=== PATIENT | male | born 1980 | race Caucasian/White ===

== ENCOUNTER 2016-04-28 04:10 | Inpatient (IN) | payer MEDICAID ==
[2016-04-28] VITALS (7 sets, daily range): BP systolic 127–147; BP diastolic 82–103; PULSE 74–110; RESP 14–20; O2SAT 96–99
[~2016-04-28] VITALS: Ht 182.9 cm; Wt 64.6 kg
--- NOTE | 2016-04-28 04:22 | ED.REPORT ---
HPI-General Illness Date of Service Apr 28, 2016 ED Provider: Dr. Shad Preston M.D. A 36 year old male presents to the ED with intermittent alcohol withdrawal symptoms onset six months ago. Today he reports generalized pain, shakiness, weight loss, nausea, vomiting, reduced appetite, and melena. The patient has been drinking approximately 750 mL of alcohol per day for the last six months. His last drink was just prior to arrival. He is interested in alcohol detox today. He has tried to detox in the past but became too ill. Nursing Notes Stated Complaint: FLU SYMPTOMS/ HEART ISSUES Chief Complaint: General Complaint Nursing Notes Reviewed: Yes Allergies: Coded Allergies: No Known Allergies (Unverified , 04/28/16) General Time Seen by MD: 04:21 Chief Complaint Other (Alcohol Withdrawal) Hx Obtained From: Patient Arrived By: Walk-in Sudden in Onset?: Yes Onset Occurred: 5 - 8 hours ago Symptom Duration: Since onset Location: : Abdomen: Back: Chest: Head: Neck Quality: Aching, Painful Severity: Current: Mild Severity: Maximum: Mild Associated with: Reports: Nausea, Vomiting, Denies: Fever Recent Healthcare: No recent doctor visit Similar Sx Previous: Yes Past Medical History Past Medical History Bilateral forearm injuries Ulcers Past Surgical History Forearm surgery Smoking History Current Every Day Smoker Social History Alcohol Use: >5 per day Other Social History: Good social support Ambulatory Status Independent Review of Systems + alcohol withdrawal, reduced appetite Full Review of Systems Constitutional: Reports: Recent wt loss GI: Reports: Melena, Nausea, Vomiting Musculoskeletal: Reports: Myalgia (General) Neurologic: Reports: Shaking Complete sys rev & neg: except as marked. Physical Exam Vital Signs Vital Signs Date Time Temp Pulse Resp B/P Pulse Ox O2 Delivery O2 Flow Rate FiO2 04/28/16 04:14 37.2 109 20 147/103 97 Room Air Initial VS: Reviewed Head / Eyes: Atraumatic, Normocephalic ENT: Conjunctiva normal, No scleral icterus Neck: Supple, Full range of motion Respiratory: Breath sounds normal, Clear to auscultation, No respiratory distress Skin: Warm, Dry General/Constitutional: Awake, Alert Behavior: Positive: Tearful Cardiovascular: Regular rhythm, Heart sounds NL Heart Rate / Rhythm: Positive: Tachycardia Neurologic: Oriented X3, Speech NL, No motor deficits, No sensory deficits Movement Abnormality: Positive: Tremor Psychiatric: Affect NL, Mood NL, Not homicidal, No hallucinations, Cognitive function NL Interpretation & Diagnostics Lab Results Interpretation Result Diagram: 04/28/16 0510 04/28/16 0510 Test 04/28/16 05:10 04/28/16 06:10 White Blood Count 5.1th/mm3 (3.8-10.1) Red Blood Count 4.85mil/mm3 (4.40-5.80) Hemoglobin 15.7g/dL (13.8-17.2) Hematocrit 46.1% (41.0-50.0) Mean Corpuscular Volume 95.1fL (81-100) Mean Corpuscular Hemoglobin 32.4pg (27.0-35.0) Mean Corpuscular Hemoglobin Concent 34.1% (32.0-37.0) Red Cell Distribution Width 12.7% (12.3-15.4) Platelet Count 167bil/L (150-400) Neutrophils (%) (Auto) 35.0% (40-74) Lymphocytes (%) (Auto) 48.5% (14-46) Monocytes (%) (Auto) 15.3% (4-12) Eosinophils (%) (Auto) 0.4% (0-5) Basophils (%) (Auto) 0.6% (0-3) Prothrombin Time 10.0sec (8.1-12.5) Prothromb Time International Ratio 0.94ratio Sodium Level 144mEq/L (134-144) Potassium Level 3.5mEq/L (3.5-5.2) Chloride Level 100mEq/L (97-108) Carbon Dioxide Level 25mmol/L (18-29) Blood Urea Nitrogen 3mg/dL (6-20) Creatinine 0.65mg/dL (0.76-1.27) Estimat Glomerular Filtration Rate 149mL/min (>59) Glucose Level 113mg/dL (60-99) Calcium Level 9.3mg/dL (8.5-10.1) Magnesium Level 1.9mg/dL (1.6-2.6) Total Bilirubin 0.9mg/dL (0.0-1.2) Aspartate Amino Transf (AST/SGOT) 122U/L (0-50) Alanine Aminotransferase (ALT/SGPT) 81U/L (0-44) Alkaline Phosphatase 111U/L (25-150) Troponin T 0.010ug/L (0.0-0.011) Total Protein 7.6g/dL (6.4-8.4) Albumin 4.1g/dL (3.4-5.0) Lipase 148U/L (13-60) Alcohol, Quantitative 325mg/dL (0-10) Urine Color Dark yellow (YELLOW) Urine Appearance Clear (CLEAR,HAZY) Urine pH 7.0 (5.0-8.0) Urine Specific Halsey 1.015 (1.003-1.035) Urine Protein Negativemg/dL (NEG,TRACE) Urine Glucose (UA) Negativemg/dL (NEGATIVE) Urine Ketones Negativemg/dL (NEGATIVE) Urine Occult Blood Negative (NEGATIVE) Urine Nitrite Negative (NEGATIVE) Urine Bilirubin Negative (NEGATIVE) Urine Urobilinogen Normalmg/dL (NORMAL) Urine Leukocyte Esterase Negative (NEGATIVE) Urine RBC 0-2/hpf (0-2) Urine WBC 0-5/hpf (0-5) Urine Epithelial Cells Occasional/hpf (NONE-MOD) Urine Crystals None seen (NONE SEEN) Urine Bacteria Few/hpf (NONE-FEW) Urine Hyaline Casts None/lpf (NONE) Urine Granular Casts None seen (NONE SEEN) Urine Waxy Casts None seen (NONE SEEN) Urine Red Blood Cell Casts None seen (NONE SEEN) Urine White Blood Cell Casts None seen (NONE SEEN) Urine Mucus None seen (None Seen) Urine Trichomonas None seen (NONE SEEN) Urine Yeast None (NONE SEEN) Urinalysis Comment None Urine Culture Reflexed Not indicated X-Ray Chest Interpretation Chest Xray Interpretation: 2.4 cm right lung nodule COPD appearance to lungs View: Portable, 1 view Interpretation / Wet Read by: Wet read ED physician Re-Eval/Medical Decision Med Decision/Clinical Course 36-year-old with a substantial alcohol history over the past year, culminating in a habit of a fifth of distilled liquor a day. He is tremulous already with an alcohol level in the 200s. He desires detox. He is recently high risk for seizures and other complications and use a better candidate for initial inpatient withdrawal. He is begun now on a CIWA protocol. Thiamine supplemented. Time of Eval: 04:36 Patient Status: Condition unchanged Re-Evaluation/Progress Note: Discussed with patient diagnosis and plan for admit. Patient agrees with plan for care and all questions were addressed. Time of Eval: 05:41 Patient Status: Condition improved Re-Evaluation/Progress Note: Patient rechecked. Consultation : Referral / Consult Name: Susana Lujan MD Consulted With: Hospitalist Call Returned at: 06:21 Private Secretary: Agrees with eval, Agrees with plan, Accepts admit Counseled Regarding: Diagnosis, Need for admission Discharge & Departure Shift Change Sign-Out Response to Therapy: Improved Primary Impression: Alcohol withdrawal Complication of substance-induced condition: uncomplicated Qualified Code: F10.230 - Alcohol dependence with withdrawal, uncomplicated Disposition: ADMITTED TO HOSPITAL Discharge Condition All VS Reviewed: Yes Condition: Stable Scribe Attestation Portions of this note were transcribed by Luz Tinsley. I, Dr. Preston, personally performed the history, physical exam, and medical decision-making; I reviewed and confirmed the accuracy of the information in the transcribed note. Signed by: Manuel Rosa, 04/28/2016, 06:27 Shad Preston MD Apr 28, 2016 04:21 LUZ TINSLEY Apr 28, 2016 04:39
[2016-04-28] MEDS ORDERED: Multivitamin w/Vit K Inj 10 ML, Thiamine Inj 100 MG, Folic Acid Inj 1 MG, Magnesium Sul... IV ONE ×5 (04:37)
[2016-04-28] MEDS ORDERED: Pantoprazole 4 mg/mL 10 mL Inj IVPUSH ONE (04:40)
[2016-04-28 05:23] LABS: BASOPHILS % (AUTO) 0.6 % (0-3); EOSINOPHILS % (AUTO) 0.4 % (0-5); MONOCYTES % (AUTO) 15.3 % (4-12); Mean Corpuscular Hemoglobin 32.4 pg (27.0-35.0); Mean Corpuscular Volume 95.1 fL (81-100); Platelet Count 167 bil/L (150-400)
[2016-04-28 05:36] LABS: INR 0.94 ratio
[2016-04-28 05:41] LABS: TROPONIN T 0.01 ug/L (0.0-0.011)
[2016-04-28 05:52] LABS: Magnesium 1.9 mg/dL (1.6-2.6)
[2016-04-28] MEDS ORDERED: Ondansetron 2 mg/mL 2 mL Inj IVPUSH PRN (06:45)
[2016-04-28 07:06] LABS: APPEARANCE,URINE CLEAR (CLEAR,HAZY); COLOR,URINE DARK YELLOW (YELLOW); OCCULT BLOOD,URINE NEGATIVE (NEGATIVE); UROBILINOGEN,URINE NORMAL (NORMAL)
[2016-04-28] MEDS: Lactated Ringer's 1,000 ML IV SCH ×2 (08:02→17:48)
--- NOTE | 2016-04-28 08:49 | DRSVH ---
PROCEDURE: X-RAY CHEST ONE VIEW, PORTABLE ([id number]) INDICATIONS: withdrawal TECHNIQUE: One view of the chest was acquired. COMPARISON: None. FINDINGS: Surgical changes and devices: None. Lungs and pleura: No pleural effusions or pneumothorax. 24 mm diameter right basilar lung nodule is present. Mediastinum: Mediastinal contours appear normal. Heart size is normal. Bones and chest wall: No suspicious bony lesions. Overlying soft tissues appear unremarkable. IMPRESSION: Right basilar lung nodule; further assessment with chest CT with intravenous contrast is recommended. Concordant with preliminary interpretation. Dictated by: Sommer Talbot M.D. on 04/28/2016 at 8:47 Approved by: Sommer Talbot M.D. on 04/28/2016 at 8:47
[2016-04-28] MEDS ORDERED: Polyethylene Glycol (PEG) 17 Gm Powder PO PRN (10:35)
[2016-04-28] MEDS ORDERED: Thiamine Inj 100 MG, Folic Acid Inj 1 MG, Magnesium Sulfate 50% Inj 2 GM, Multivitamins... IV ONE ×5 (10:35)
[2016-04-28] MEDS ORDERED: Alum-Mag Hydrox-Simeth 30 mL Suspension PO PRN (10:35)
[2016-04-28] MEDS: Heparin 5,000 Unit/mL Inj SUBQ SCH ×2 (16:13→23:50)
[2016-04-28] MEDS: Ondansetron 2 mg/mL 2 mL Inj IVPUSH PRN ×2 (16:18→20:05)
[2016-04-28] MEDS ORDERED: Influenza (Adult) Vaccine 0.5 mL Syringe IM ONE (16:30)
--- NOTE | 2016-04-28 17:20 | PCM.HPMED ---
Subjective Date of Service Apr 28, 2016 Primary Provider: Admitting Physician: Susana Lujan MD Primary Care Physician: Nopcp Attending Physician: Susana Lujan MD Admit Status: From the Emergency Department, Full Admit, Admit to [facility] Team, [facility] Telemetry Chief Complaint: Moderately severe alcohol withdrawal History of Present Illness: This is a 36-year-old gentleman with a history of alcohol abuse versus dependence. He presents today with generalized cold symptoms including rhinorrhea and sore throat. He also notes that he feels nauseated and tremulous having decided to quit drinking. He has been drinking last 6 months very heavily at about a fifth of liquor a day. 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 He denies a history of severe withdrawal tremens, or seizures related to alcohol cessation. He is scoring anywhere from 0-20 on the CIWA protocol while being boarded in the emergency department. He denies any chest pain or dyspnea. He has had recent fatigue and diarrhea. No nausea or vomiting. No rectal bleeding or hemoptysis. Hematemesis. Review of Systems: He does have a mild headache denies visual changes or hearing loss. Some rhinorrhea and cough. Minimal sore throat. No dyspnea. He denies any abdominal pain. He has multiple bruises and ulcers on the skin. All else reviewed and otherwise unremarkable as noted in the history of present illness. Allergies Coded Allergies: No Known Allergies (Unverified , 04/28/16) Home Medications None PMH 1. 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 No acute distress. Fluent speech. The patient is again oriented 3. Normal skull. Normal nose and ears. Anicteric sclerae, symmetric pupils Oropharynx dry mucosa otherwise unremarkable. No droop Neck supple. Normal thyroid, no adenopathy Lungs are clear, normal effort and rate. Heart is regular without murmur gallop or rub Abdomen is soft nondistended no organomegaly. Extremities are free of edema. Good radial and pedal pulses. Skin is normal for multiple excoriations. Some bruises. Joints Are Deformed Cranial Nerves Are Intact Lab and Diagnostics Result Diagram: 04/28/1650904/28/16509 Assessment & Plan 1. Acute alcohol withdrawal syndrome. POA. We will place patient on CIWA protocol. 2. Alcohol abuse versus dependence. POA. We will use fluids with thiamine and multivitamins. 3. Volume depletion. POA. IV fluids as above. 4. Probable alcohol-induced hepatitis. POA. Follow clinically. 5. Upper respiratory symptoms. POA. Respiratory PCR. Patient was admitted inpatient status, expect over 2 night stay Full resuscitation Pain Evaluation: Adequate Pain Control Resuscitation Status: CPR: Attempt Resuscitation Time spent 40 minutes Gallo Neff MD Apr 28, 2016 17:20
--- NOTE | 2016-04-28 18:34 | NUR ---
CIWA management Pt. treated for withdrawal according to [facility] protocol. CIWA score ranging from 0-21. Major symptoms are nausea, anxiety, and tremors. PRN lorazepam and ondansetron administered to help with symptoms as well. See [facility] intervention and MAR for assessment and med administration. Pt. pleasant and cooperative. States he has been having nausea and vomiting every day for weeks now, with occasional diarrhea. No vomiting this shift. Will continue to monitor.
[2016-04-29] VITALS (9 sets, daily range): BP systolic 129–156; BP diastolic 83–104; PULSE 64–80; RESP 16–18; O2SAT 98–100
[2016-04-29] MEDS: Lactated Ringer's 1,000 ML IV SCH ×3 (03:37→22:52)
--- NOTE | 2016-04-29 03:43 | NUR ---
Anxiety/Pain Patient has presented with anxiety, tremors, headache, nausea, and abdominal pain. Treated with lorazepam and morphine to maintain a low CIWA score. Patient has been sleeping most of the night without much issue. Will continue to monitor.
[2016-04-29 04:13] LABS: BASOPHILS % (AUTO) 0.7 % (0-3); EOSINOPHILS % (AUTO) 1.2 % (0-5); MONOCYTES % (AUTO) 11.9 % (4-12); Mean Corpuscular Hemoglobin 32.4 pg (27.0-35.0); Mean Corpuscular Volume 98.2 fL (81-100); NEUTROPHILS % (AUTO) 48.1 % (40-74); Platelet Count 100 bil/L (150-400)
[2016-04-29 04:44] LABS: Magnesium 1.9 mg/dL (1.6-2.6)
[2016-04-29] MEDS: Multivit-Miner-Folic Acid-Iron Tablet PO SCH (09:17)
[2016-04-29] MEDS: Heparin 5,000 Unit/mL Inj SUBQ SCH ×2 (09:17→16:30)
[2016-04-29] MEDS: Thiamine Inj 100 MG in 0.9% Sodium Chloride 100 ML IV SCH (09:21)
--- NOTE | 2016-04-29 11:57 | PCM.PNMED ---
Subjective Date of Service Apr 29, 2016 Subjective Less anxious. No chest pain or dyspnea. No hallucinations. No diarrhea today. Exam Vital Signs Vital Sign - Last Date Time Temp Pulse Resp B/P Pulse Ox O2 Delivery O2 Flow Rate FiO2 04/29/16 10:39 36.8 74 18 140/86 98 Room Air Intake and Output 04/28/16 04/28/16 04/29/16 Cumulative From/Thru 15:00 23:00 07:00 04/28/16 04:14 - 04/28/16 19:27 Intake Total 1499 ml 2359 ml Output Total 625 ml 625 ml Balance 874 ml 1734 ml Intake Oral 400 ml 760 ml IV Total 1099 ml 1599 ml Output Urine Total 625 ml 625 ml Exam NAD. fluent speech Anicteric sclera Lungs clear CV RRR abdomen soft No edema IVs and Medications Medications Reviewed: Medications were reviewed in detail Lab and Diagnostics Result Diagram: 04/29/16 0400 04/29/16 0400 Assessment & Plan 1. Acute alcohol withdrawal syndrome. POA. We will place patient on CIWA protocol.He is slightly improved. CDL evaluation today. 2. Alcohol abuse versus dependence. POA. We will use fluids with thiamine and multivitamins. 3. Volume depletion. POA. IV fluids as above.Better. 4. Probable alcohol-induced hepatitis. POA. Follow clinically.Positive RUQ pain, follow 5. Upper respiratory symptoms. POA. Respiratory PCR. Patient was admitted inpatient status, expect over 2 night stay Full resuscitation Pain Evaluation: Adequate Pain Control Resuscitation Status: CPR: Attempt Resuscitation Time spent 20 min Gallo Neff MD Apr 29, 2016 11:57
--- NOTE | 2016-04-29 13:36 | NUR ---
Transfer from ED Arrival at 1335, report taken from Ben Pyle RN. Pt very shaky and unsteady on feet with transfer from stretcher to bed; reports pain 8/10 in lower abdomen and is requesting Morphine; EKG ordered prior to transport and RT called at this time to come complete. Will continue close CIWA monitoring. Lauren alarm in place for safety.
[2016-04-30] VITALS (8 sets, daily range): BP systolic 100–133; BP diastolic 68–90; PULSE 70–89; RESP 16–18; O2SAT 97–99
[2016-04-30] MEDS: Heparin 5,000 Unit/mL Inj SUBQ SCH ×4 (01:05→23:31)
--- NOTE | 2016-04-30 04:43 | NUR ---
Pain/Ciwa Pt alert and oriented x3. Pt noted to have flat affect. He can be forgetful and impulsive at times. Bed alarm on for safety. He c/o Abd pain and rates pain 8/10. Pt noted to be sleeping comfortably afterwards. Anxious at times. CIWA 7-10. Valium given with effect noted.
[2016-04-30] MEDS: Lactated Ringer's 1,000 ML IV SCH (08:43)
[2016-04-30] MEDS: Thiamine Inj 100 MG in 0.9% Sodium Chloride 100 ML IV SCH (11:23)
[2016-04-30] MEDS: Multivit-Miner-Folic Acid-Iron Tablet PO SCH (11:24)
--- NOTE | 2016-04-30 19:27 | NUR ---
CIWA/Pain Pt CIWA scale 7-11 over course of shift and able to stay comfortable with ordered medications. No hallucinations on shift. Pt can be forgetful and not use call light when he needs to get up. Reminded to use light because he can be unsteady on feet. Pt continuing to have back and abd pain 12/03, well controlled with medications.
--- NOTE | 2016-04-30 20:01 | PCM.PNMED ---
Subjective Date of Service Apr 30, 2016 Subjective Still scoring about an 8 on the CIWA protocol this morning. Patient is still a little tremulous. Asking about something for his anxiety. He is worried about going back to alcohol at discharge. No chest pain, nausea vomiting, diarrhea or constipation. Exam Vital Signs Vital Sign - Last Date Time Temp Pulse Resp B/P Pulse Ox O2 Delivery O2 Flow Rate FiO2 04/30/16 18:55 36.8 85 16 128/85 99 Room Air Intake and Output 04/29/16 04/29/16 04/30/16 Cumulative From/Thru 15:00 23:00 07:00 04/28/16 04:14 - 04/30/16 06:09 Intake Total 2633 ml 1524 ml 6516 ml Output Total 900 ml 1750 ml 3275 ml Balance -900 ml 2633 ml -226 ml 3241 ml Intake Oral 400 ml 500 ml 1660 ml IV Total 2233 ml 1024 ml 4856 ml Output Urine Total 900 ml 1750 ml 3275 ml # Bowel Movements 0 0 Exam General: Alert, Oriented X3, NAD, tremulous, flat affect Head: Normocephalic, atraumatic Eyes: DWIGHT, EOMI, no scleral Icterus Chest: clear to auscultation B/L, no wheezing rales or rhonchi Heart: Regular rate and rhythm. Normal S1, S2, no murmurs noted Abdomen: soft, non-tender. Bowel sounds are normoactive. No guarding or rebound. Extremities: no cyanosis, clubbing or edema. IVs and Medications Medications Reviewed: Medications were reviewed in detail Lab and Diagnostics Result Diagram: 04/29/160 04/29/16 0400 Assessment & Plan 1. Acute alcohol withdrawal syndrome. POA. -Continue C1 protocol -I had along discussion with him today about alcohol cessation 2. Alcohol abuse versus dependence. POA. -Continue fluids with thiamine and multivitamins. 3. Volume depletion. POA. -Improved 4. Probable alcohol-induced hepatitis. POA. -Follow clinically.Positive RUQ pain, follow 5. Upper respiratory symptoms. POA. -Respiratory PCR Negative, improved CODE STATUS: Full code DVT prophylaxis: Heparin Disposition: Likely home tomorrow with continued improvement. Resuscitation Status: CPR: Attempt Resuscitation Red Malik DO Apr 30, 2016 20:01
--- NOTE | 2016-04-30 23:31 | NUR ---
Heparin Withheld per MD's request This RN noticed that pt's platelet count was 100. Pharmacy was notified, which advised that the 0030 dose of heparin should be withheld. MD was paged also. agreed that since the pt. is ambulatory baseline, that the 0030 dose of heparin should be withheld.
[2016-05-01 02:05] VITALS: BP 118/79; PULSE 71; RESP 16; O2SAT 96
--- NOTE | 2016-05-01 03:29 | NUR ---
CIWA Pt's CIWA score has varied from 9-13 this shift. Pt. was confused about telemetry, but this RN reoriented pt. Will continue to monitor.
[2016-05-01 03:48] VITALS: PULSE 60
[2016-05-01 04:44] VITALS: PULSE 65
[2016-05-01 06:20] VITALS: BP 121/81; PULSE 69; RESP 20; O2SAT 97
[2016-05-01 06:50] LABS: Mean Corpuscular Hemoglobin 32.3 pg (27.0-35.0); Mean Corpuscular Volume 97.8 fL (81-100)
[2016-05-01 08:00] VITALS: PULSE 78
[2016-05-01] MEDS: Multivit-Miner-Folic Acid-Iron Tablet PO SCH (08:00)
[2016-05-01] MEDS: Heparin 5,000 Unit/mL Inj SUBQ SCH (08:30)
[2016-05-01 10:26] VITALS: BP 114/80; PULSE 91; RESP 18; O2SAT 98
[2016-05-01] MEDS ORDERED: SERT50TA9 PO (12:13)
[2016-05-01] MEDS ORDERED: CHLO25CA10 PO (12:13)
--- NOTE | 2016-05-01 12:15 | PCM.DIMED ---
Discharge Instructions Date of Service May 01, 2016 Dates of Hospitalization Apr 28, 2016 at 06:29 Discharge Diagnosis Discharge Diagnosis Alcohol withdrawal Anxiety Diet No restrictions Activity No restrictions Call your provider Fever or Chills, Chest pain, Weakness (unilateral) Patient Instructions Follow-up plan I recommend following up with a treatment program for alcoholism. Follow-up with PCP in: 1 week Red Malik DO May 01, 2016 12:15
--- NOTE | 2016-05-01 15:34 | NUR ---
Discharge Orders for discharge were received. The patient was agreeable to the discharge and received his scripts, information regarding his new medications, diagnosis, treatment, follow up instructions, signs and symptoms to be aware of and information of local substance abuse treatment centers to follow up with. The patient stated understanding of this information and his asymptomatic IV was removed intact. The patients belongs were gathered, from both the room and bedside drawer and storage off unit. The patient then was escorted to the main entrance where he ambulated out the doors at his preference. At the time of discharge the patient was alert and oriented, with no complaints of nausea or pain, CIWA score of 4.
--- NOTE | 2016-05-01 21:33 | PCM.DC.MED ---
Discharge Summary Date of Service May 01, 2016 Dates of Hospitalization Date of Hospital Admission Apr 28, 2016 at 06:29 Date of Discharge: May 01, 2016 Providers: Admitting Physician: Susana Lujan MD Primary Care Physician: Rosibel Attending Physician: Susana Lujan MD Diagnosis at Time of Discharge Diagnosis at Time of Discharge Alcohol withdrawal Anxiety Brief History This is a 36-year-old gentleman with a history of alcohol abuse versus dependence. He presents today with generalized cold symptoms including rhinorrhea and sore throat. He also notes that he feels nauseated and tremulous having decided to quit drinking. He has been drinking last 6 months very heavily at about a fifth of liquor a day. 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 He denies a history of severe withdrawal tremens, or seizures related to alcohol cessation. He is scoring anywhere from 0-20 on the CIWA protocol while being boarded in the emergency department. He denies any chest pain or dyspnea. He has had recent fatigue and diarrhea. No nausea or vomiting. No rectal bleeding or hemoptysis. Hematemesis. Hospital Course The patient was admitted for acute alcohol withdrawal he was placed on CIWA protocol. As he improved and required less benzodiazepines we discussed his anxiety and need for alcohol. He agreed to take Zoloft to help his anxiety. He was treated with IV fluids and the appropriate vitamins. We discussed the natural progression of alcoholism and liver failure which would eventually take his life if he continues drinking. Options for rehabilitation were given to him by case management. At discharge she was given a tapering dose of Librium. He was feeling much better at the time of discharge and comfortable with outpatient follow-up and rehabilitation. He was discharged home in stable condition and instructed follow up with his primary care physician within one week, sooner if his condition worsens in anyway. 1. Acute alcohol withdrawal syndrome. POA. -Continue C1 protocol -I had along discussion with him today about alcohol cessation 2. Alcohol abuse versus dependence. POA. -Continue fluids with thiamine and multivitamins. 3. Volume depletion. POA. -Improved 4. Probable alcohol-induced hepatitis. POA. -Follow clinically.Positive RUQ pain, follow 5. Upper respiratory symptoms. POA. -Respiratory PCR Negative, improved Exam Vital Signs (Last) Date Time Temp Pulse Resp B/P Pulse Ox O2 Delivery O2 Flow Rate FiO2 05/01/16 10:26 36.5 91 18 114/80 98 Room Air Test 04/28/16 05:10 04/28/16 06:10 04/28/16 07:12 04/29/16 04:00 Prothrombin Time 10.0sec (8.1-12.5) Prothromb Time International Ratio 0.94ratio Phosphorus Level 3.3mg/dL (2.5-4.9) Troponin T 0.010ug/L (0.0-0.011) Lipase 148U/L (13-60) Alcohol, Quantitative 325mg/dL (0-10) Urine Color Dark yellow (YELLOW) Urine Appearance Clear (CLEAR,HAZY) Urine pH 7.0 (5.0-8.0) Urine Specific [place] 1.015 (1.003-1.035) Urine Protein Negativemg/dL (NEG,TRACE) Urine Glucose (UA) Negativemg/dL (NEGATIVE) Urine Ketones Negativemg/dL (NEGATIVE) Urine Occult Blood Negative (NEGATIVE) Urine Nitrite Negative (NEGATIVE) Urine Bilirubin Negative (NEGATIVE) Urine Urobilinogen Normalmg/dL (NORMAL) Urine Leukocyte Esterase Negative (NEGATIVE) Urine RBC 0-2/hpf (0-2) Urine WBC 0-5/hpf (0-5) Urine Epithelial Cells Occasional/hpf (NONE-MOD) Urine Crystals None seen (NONE SEEN) Urine Bacteria Few/hpf (NONE-FEW) Urine Hyaline Casts None/lpf (NONE) Urine Granular Casts None seen (NONE SEEN) Urine Waxy Casts None seen (NONE SEEN) Urine Red Blood Cell Casts None seen (NONE SEEN) Urine White Blood Cell Casts None seen (NONE SEEN) Urine Mucus None seen (None Seen) Urine Trichomonas None seen (NONE SEEN) Urine Yeast None (NONE SEEN) Urinalysis Comment None Urine Culture Reflexed Not indicated Urine Opiates Screen Negative Urine Methadone Screen Negative Urine Barbiturates Screen Negative Urine Amphetamines Screen Negative Urine Benzodiazepines Screen Negative Urine Cocaine Metabolite Screen Negative Urine Cannabinoids Screen Positive Ammonia 18ug/dL (18-53) Neutrophils (%) (Auto) 48.1% (40-74) Lymphocytes (%) (Auto) 38.1% (14-46) Monocytes (%) (Auto) 11.9% (4-12) Eosinophils (%) (Auto) 1.2% (0-5) Basophils (%) (Auto) 0.7% (0-3) Magnesium Level 1.9mg/dL (1.6-2.6) Total Bilirubin 1.3mg/dL (0.0-1.2) Aspartate Amino Transf (AST/SGOT) 105U/L (0-50) Alanine Aminotransferase (ALT/SGPT) 57U/L (0-44) Alkaline Phosphatase 83U/L (25-150) Total Protein 5.4g/dL (6.4-8.4) Albumin 3.2g/dL (3.4-5.0) Test 05/01/16 06:10 White Blood Count 5.8th/mm3 (3.8-10.1) Red Blood Count 4.09mil/mm3 (4.40-5.80) Hemoglobin 13.2g/dL (13.8-17.2) Hematocrit 40.0% (41.0-50.0) Mean Corpuscular Volume 97.8fL (81-100) Mean Corpuscular Hemoglobin 32.3pg (27.0-35.0) Mean Corpuscular Hemoglobin Concent 33.0% (32.0-37.0) Red Cell Distribution Width 11.6% (12.3-15.4) Platelet Count 109bil/L (150-400) Sodium Level 140mEq/L (134-144) Potassium Level 3.7mEq/L (3.5-5.2) Chloride Level 101mEq/L (97-108) Carbon Dioxide Level 26mmol/L (18-29) Blood Urea Nitrogen 4mg/dL (6-20) Creatinine 0.50mg/dL (0.76-1.27) Estimat Glomerular Filtration Rate 201mL/min (>59) Glucose Level 86mg/dL (60-99) Calcium Level 8.8mg/dL (8.5-10.1) Discharge Medications Discharge Medications Sertraline HCl (Sertraline) 50 Mg Tablet 50 MG PO DAILY Prescribed by: NALINI MALIK, DO As needed Chlordiazepoxide (Chlordiazepoxide) 25 Mg Capsule 25 MG PO Q6H PRN PRN For Anxiety Take every 8 hours for 1 day, then every 12 hours on day 2, then once on day 3. Prescribed by: NALINI MALIK DO Followup Plan Follow-up plan I recommend following up with a treatment program for alcoholism. Discharge Diet: No restrictions Discharge Activity: No restrictions Follow-up with PCP in: 1 week Time spent 35 minutes Nalini Mailk DO May 01, 2016 21:33
== END 2016-05-01 15:34 | disposition home or self-care (01) | DRG 775 ==
LOC: SED 04:10 → UNDOADMIN 06:29 → OFED 06:29 → OSC 04-29 12:33
PROVIDERS: ADMIT Specialist; ATTEND Hospitalist
DX: F10.239 Alcohol dependence with withdrawal, unspecified (principal); E86.9 Volume depletion, unspecified; F17.200 Nicotine dependence, unspecified, uncomplicated; F41.9 Anxiety disorder, unspecified